=== PATIENT | male | born 1940 | race Caucasian/White ===

== ENCOUNTER 2017-02-22 06:09 | Inpatient (IN) | payer MEDICARE, OTHER ==
[2017-02-13 08:37] VITALS: BP 96/59
[~2017-02-22] VITALS: Ht 182.9 cm; Wt 116.0 kg
[~2017-02-22 06:09] MED LIST: ALLO100T30 PO; ARED 2 PO; ASPI-496 PO; ATOR20TA PO; AZIT250T89 PO; BENA20TA2 PO; CHOL20002 PO; CYAN50008 PO; GABA100C PO; GABA300C PO; HYDR12.58 PO; IBUP400T PO; IBUP800T PO; MAGNESIUM PO; METF500T4 PO; MULT-26 PO; MULT-717 PO; PRED10TA PO; TRAM50TA2 PO
[2017-02-22] MEDS ORDERED: KETOROLAC 60 MG/2 ML ONE ×2 (06:17→07:50)
[2017-02-22] MEDS ORDERED: TRANEXAMIC ACID 100 MG/ML, 10ML ONE ×2 (06:17→07:50)
[2017-02-22] MEDS ORDERED: ROPIvacaine/PF 0.5%, 20 ML ONE (06:17)
[2017-02-22] MEDS ORDERED: SODIUM CHLORIDE 0.9% 50 ML ONE (06:18)
[2017-02-22] MEDS ORDERED: EPINEPHRINE 1 MG/ML, 1ML ONE (06:18)
[2017-02-22] MEDS ORDERED: MIDAZOLAM 1 MG/ML, 2ML ONE (06:36)
[2017-02-22] MEDS ORDERED: FENTANYL PF 250 MCG/5ML ONE (06:36)
[2017-02-22] MEDS ORDERED: LACTATED RINGERS 1,000 ML IV SCH (06:53)
[2017-02-22] MEDS ORDERED: LIDOCAINE 1%, 2ML SQ PRN (07:00)
[2017-02-22] MEDS ORDERED: DEXAMETHASONE 4 MG/ML, 1ML ONE (07:10)
[2017-02-22] MEDS ORDERED: CEFAZOLIN 1,000 MG ONE (07:10)
[2017-02-22] MEDS ORDERED: ONDANSETRON 2MG/ML, 2ML ONE (07:10)
[2017-02-22] MEDS ORDERED: PROPOFOL 10 MG/ML, 20ML ONE (07:10)
[2017-02-22] MEDS ORDERED: HYDROmorphone 1 MG/ML, 1ML IV PRN ×2 (08:00→09:00)
[2017-02-22] MEDS ORDERED: ONDANSETRON 2MG/ML, 2ML IVPush PRN (08:00)
[2017-02-22] MEDS ORDERED: LABETALOL 5MG/ML, 20ML IV PRN (08:00)
[2017-02-22] MEDS ORDERED: OXYcodone 5 MG/5 ML ORAL.SOL UDC PO PRN (08:00)
[2017-02-22] MEDS ORDERED: ACETAMINOPHEN 325 MG TABLET PO PRN (08:00)
[2017-02-22] MEDS ORDERED: METOCLOPRAMIDE 5 MG/ML, 2ML IV PRN (08:00)
[2017-02-22] MEDS ORDERED: hydrALAzine 20 MG/ML, 1ML IV PRN (08:00)
[2017-02-22] MEDS ORDERED: FENTANYL PF 100 MCG/2ML IV PRN (08:00)
[2017-02-22] MEDS ORDERED: ONDANSETRON 4 MG TABLET PO PRN (09:00)
[2017-02-22] MEDS ORDERED: SCOPOLAMINE PATCH, 1.5MG PATCH.TD72 TD SCH (09:00)
[2017-02-22] MEDS ORDERED: HYDROcodone/APAP 10/325 MG TABLET PO PRN (09:00)
[2017-02-22] MEDS ORDERED: SENNA/DOCUSATE TABLET PO PRN (09:00)
[2017-02-22] MEDS ORDERED: OXYcodone IR 5MG TABLET PO PRN (09:00)
[2017-02-22] MEDS ORDERED: BISACODYL 10 MG SUPP PR PRN (09:00)
[2017-02-22] MEDS: ACETAMINOPHEN 650 MG/20.3 ML UDC PO SCH ×4 (09:00→21:00)
[2017-02-22] MEDS ORDERED: ONDANSETRON 2MG/ML, 2ML IV PRN (09:00)
[2017-02-22] MEDS ORDERED: DIPHENHYDRAMINE 50 MG CAPSULE PO PRN (09:00)
[2017-02-22] MEDS ORDERED: PROMETHAZINE 25 MG/ML, 1ML IM PRN (09:00)
[2017-02-22] MEDS ORDERED: PROMETHAZINE 12.5 MG SUPP PR PRN (09:00)
[2017-02-22] MEDS ORDERED: MAGNESIUM HYDROXIDE 8%, 30ML UDC PO PRN (09:00)
[2017-02-22] MEDS ORDERED: DIAZEPAM 5 MG TABLET PO PRN (09:00)
[2017-02-22] MEDS ORDERED: ALUMINUM/MAG/SIMETHICONE 30 ML UDC PO PRN (09:00)
[2017-02-22] MEDS ORDERED: ZOLPIDEM 5MG TABLET PO PRN (09:00)
[2017-02-22] MEDS: MULTIVITAMINS/MINERALS TABLET PO SCH (09:00)
[2017-02-22] MEDS: OXYcodone IR 5MG TABLET PO SCH ×4 (09:00→21:00)
[2017-02-22] MEDS ORDERED: TRANEXAMIC ACID 1,000 MG in SODIUM CHLORIDE 0.9% 100 ML IVPB ONE (09:20)
[2017-02-22] MEDS: D5%-0.45% NACL 1,000 ML IV SCH ×3 (11:49→20:58)
[2017-02-22] MEDS: PREGABALIN 75 MG CAPSULE PO SCH ×2 (11:50→20:58)
[2017-02-22] MEDS: DOCUSATE 100 MG CAPSULE PO SCH ×2 (11:50→20:57)
[2017-02-22] MEDS: TAMSULOSIN 0.4 MG CAP.ER.24H PO SCH (11:51)
[2017-02-22] MEDS: BENAZEPRIL 20 MG TABLET PO SCH (12:38)
[2017-02-22 14:00] VITALS: BP 127/75
[2017-02-22] MEDS: CEFAZOLIN PMX 2GM/50ML 50 ML IVPB SCH (15:37)
[2017-02-22] MEDS: ASPIRIN 81 MG TABLET EC PO SCH (17:54)
[2017-02-22 19:19] VITALS: BP 114/69
[2017-02-22] MEDS: ATORVASTATIN 20 MG TABLET PO SCH (20:57)
[2017-02-22 23:24] VITALS: BP 94/60
[2017-02-23] MEDS: CEFAZOLIN PMX 2GM/50ML 50 ML IVPB SCH
[2017-02-23] MEDS: OXYcodone IR 5MG TABLET PO SCH ×8 (01:00→21:59)
[2017-02-23] MEDS: ACETAMINOPHEN 650 MG/20.3 ML UDC PO SCH ×6 (01:00→21:56)
[2017-02-23 03:37] VITALS: BP 112/63
[2017-02-23] MEDS ORDERED: DEXAMETHASONE 4 MG/ML, 1ML IVPush SCH (06:00)
[2017-02-23] MEDS: ASPIRIN 81 MG TABLET EC PO SCH ×2 (06:18→17:30)
[2017-02-23 08:00] VITALS: BP 116/65
[2017-02-23 08:26] LABS: ASPARTATE AMINO TRANSFERASE 48 U/L (15-37); BLOOD UREA NITROGEN 34 mg/dL (7-18)
[2017-02-23] MEDS: D5%-0.45% NACL 1,000 ML IV SCH ×2 (08:52→21:52)
[2017-02-23] MEDS: HYDROCHLOROTHIAZIDE 12.5 MG CAPSULE PO SCH (09:50)
[2017-02-23] MEDS: MULTIVITAMINS/MINERALS TABLET PO SCH (09:51)
[2017-02-23] MEDS: TAMSULOSIN 0.4 MG CAP.ER.24H PO SCH (09:51)
[2017-02-23] MEDS: KETOROLAC 30 MG/1 ML IV SCH ×3 (09:51→21:58)
[2017-02-23] MEDS: ALLOPURINOL 300 MG TABLET PO SCH (09:51)
[2017-02-23] MEDS: DOCUSATE 100 MG CAPSULE PO SCH ×2 (09:51→21:56)
[2017-02-23] MEDS: BENAZEPRIL 20 MG TABLET PO SCH (09:51)
[2017-02-23] MEDS ORDERED: SODIUM CHLORIDE 0.9% 1,000ML IVBOLUS ONE ×2 (10:00→15:30)
[2017-02-23 15:50] VITALS: BP 138/72
[2017-02-23 19:33] VITALS: BP 136/51
[2017-02-23] MEDS: ATORVASTATIN 20 MG TABLET PO SCH (21:56)
[2017-02-24] MEDS: ACETAMINOPHEN 650 MG/20.3 ML UDC PO SCH ×5 (00:27→20:47)
[2017-02-24] MEDS ORDERED: HALOPERIDOL 5 MG/ML ONE (02:09)
[2017-02-24] MEDS ORDERED: HALOPERIDOL 5 MG/ML IM PRN ×2 (02:30→11:00)
[2017-02-24 02:42] VITALS: BP 122/65
[2017-02-24] MEDS: ASPIRIN 81 MG TABLET EC PO SCH ×2 (04:42→17:23)
[2017-02-24 06:46] VITALS: BP 144/73
[2017-02-24] MEDS: D5%-0.45% NACL 1,000 ML IV SCH ×2 (08:52→16:52)
[2017-02-24] MEDS: HYDROCHLOROTHIAZIDE 12.5 MG CAPSULE PO SCH (09:34)
[2017-02-24] MEDS: ALLOPURINOL 300 MG TABLET PO SCH (09:34)
[2017-02-24] MEDS: DOCUSATE 100 MG CAPSULE PO SCH ×2 (09:34→20:48)
[2017-02-24] MEDS: MULTIVITAMINS/MINERALS TABLET PO SCH (09:34)
[2017-02-24] MEDS: BENAZEPRIL 20 MG TABLET PO SCH (09:34)
[2017-02-24] MEDS: TAMSULOSIN 0.4 MG CAP.ER.24H PO SCH (09:35)
[2017-02-24] MEDS: OXYcodone IR 5MG TABLET PO SCH ×4 (09:35→21:00)
[2017-02-24] MEDS: KETOROLAC 30 MG/1 ML IV SCH ×2 (09:35→16:21)
[2017-02-24 11:50] LABS: ASPARTATE AMINO TRANSFERASE 44 U/L (15-37); BLOOD UREA NITROGEN 30 mg/dL (7-18)
[2017-02-24 12:00] LABS: ANISOCYTOSIS 1+
[2017-02-24 12:36] VITALS: BP 95/46
[2017-02-24 19:51] VITALS: BP 101/55
[2017-02-24] MEDS: ATORVASTATIN 20 MG TABLET PO SCH (20:47)
[2017-02-25] MEDS: D5%-0.45% NACL 1,000 ML IV SCH ×3 (00:22→16:52)
[2017-02-25] MEDS: ACETAMINOPHEN 650 MG/20.3 ML UDC PO SCH ×6 (00:24→22:48)
[2017-02-25] MEDS: OXYcodone IR 5MG TABLET PO SCH ×6 (00:24→19:59)
[2017-02-25 01:07] VITALS: BP 111/60
[2017-02-25] MEDS: ASPIRIN 81 MG TABLET EC PO SCH ×2 (05:01→17:51)
[2017-02-25 07:14] VITALS: BP 110/66
[2017-02-25] MEDS: MULTIVITAMINS/MINERALS TABLET PO SCH (09:13)
[2017-02-25] MEDS: ALLOPURINOL 300 MG TABLET PO SCH (09:14)
[2017-02-25] MEDS: HYDROCHLOROTHIAZIDE 12.5 MG CAPSULE PO SCH (09:14)
[2017-02-25] MEDS: DOCUSATE 100 MG CAPSULE PO SCH ×2 (09:14→19:59)
[2017-02-25] MEDS: BENAZEPRIL 20 MG TABLET PO SCH (09:14)
[2017-02-25] MEDS: TAMSULOSIN 0.4 MG CAP.ER.24H PO SCH (09:14)
[2017-02-25 14:40] VITALS: BP 114/66
[2017-02-25] MEDS: ATORVASTATIN 20 MG TABLET PO SCH (19:58)
[2017-02-25 20:09] VITALS: BP 138/74
[2017-02-26] MEDS: D5%-0.45% NACL 1,000 ML IV SCH ×3 (00:52→16:47)
[2017-02-26] MEDS: OXYcodone IR 5MG TABLET PO SCH ×6 (01:00→20:22)
[2017-02-26 01:25] VITALS: BP 123/62
[2017-02-26] MEDS: ACETAMINOPHEN 650 MG/20.3 ML UDC PO SCH ×6 (02:54→20:36)
[2017-02-26 05:46] LABS: BLOOD UREA NITROGEN 31 mg/dL (7-18)
[2017-02-26 05:52] LABS: ASPARTATE AMINO TRANSFERASE 53 U/L (15-37)
[2017-02-26] MEDS: ASPIRIN 81 MG TABLET EC PO SCH ×2 (06:04→20:36)
[2017-02-26 08:15] VITALS: BP 106/64
[2017-02-26] MEDS: TAMSULOSIN 0.4 MG CAP.ER.24H PO SCH ×2 (09:00→20:36)
[2017-02-26] MEDS: DOCUSATE 100 MG CAPSULE PO SCH ×2 (09:00→20:22)
[2017-02-26] MEDS: HYDROCHLOROTHIAZIDE 12.5 MG CAPSULE PO SCH (09:20)
[2017-02-26] MEDS: MULTIVITAMINS/MINERALS TABLET PO SCH (09:20)
[2017-02-26] MEDS: BENAZEPRIL 20 MG TABLET PO SCH (09:20)
[2017-02-26] MEDS: ALLOPURINOL 300 MG TABLET PO SCH (09:20)
[2017-02-26 15:30] VITALS: BP 120/71
[2017-02-26 20:03] VITALS: BP 121/57
[2017-02-26] MEDS: ATORVASTATIN 20 MG TABLET PO SCH (20:36)
[2017-02-27] MEDS: ACETAMINOPHEN 650 MG/20.3 ML UDC PO SCH ×8 (00:25→23:00)
[2017-02-27] MEDS: D5%-0.45% NACL 1,000 ML IV SCH ×3 (00:34→16:52)
[2017-02-27] MEDS: OXYcodone IR 5MG TABLET PO SCH ×6 (00:40→21:00)
[2017-02-27 01:10] VITALS: BP 120/54
[2017-02-27] MEDS: ASPIRIN 81 MG TABLET EC PO SCH ×2 (06:25→17:21)
[2017-02-27 07:51] VITALS: BP 147/74
[2017-02-27] MEDS: MULTIVITAMINS/MINERALS TABLET PO SCH (09:00)
[2017-02-27] MEDS: HYDROCHLOROTHIAZIDE 12.5 MG CAPSULE PO SCH ×2 (09:00→09:08)
[2017-02-27] MEDS: ALLOPURINOL 300 MG TABLET PO SCH ×2 (09:00→09:08)
[2017-02-27] MEDS: DOCUSATE 100 MG CAPSULE PO SCH ×2 (09:00→21:00)
[2017-02-27] MEDS: BENAZEPRIL 20 MG TABLET PO SCH (09:08)
[2017-02-27 14:10] VITALS: BP 135/73
[2017-02-27 20:11] VITALS: BP 121/70
[2017-02-27] MEDS: ATORVASTATIN 20 MG TABLET PO SCH (20:27)
[2017-02-28] MEDS: D5%-0.45% NACL 1,000 ML IV SCH ×3 (00:52→16:52)
[2017-02-28] MEDS: OXYcodone IR 5MG TABLET PO SCH ×6 (01:00→21:00)
[2017-02-28 02:31] VITALS: BP 121/68
[2017-02-28] MEDS: ACETAMINOPHEN 650 MG/20.3 ML UDC PO SCH ×5 (02:47→22:04)
[2017-02-28] MEDS: ASPIRIN 81 MG TABLET EC PO SCH ×2 (06:58→17:49)
[2017-02-28] MEDS: DOCUSATE 100 MG CAPSULE PO SCH ×2 (08:56→22:04)
[2017-02-28] MEDS: TAMSULOSIN 0.4 MG CAP.ER.24H PO SCH (08:56)
[2017-02-28] MEDS: MULTIVITAMINS/MINERALS TABLET PO SCH (08:57)
[2017-02-28] MEDS: HYDROCHLOROTHIAZIDE 12.5 MG CAPSULE PO SCH (08:57)
[2017-02-28] MEDS: BENAZEPRIL 20 MG TABLET PO SCH (08:58)
[2017-02-28] MEDS: ALLOPURINOL 300 MG TABLET PO SCH (08:58)
[2017-02-28 09:06] VITALS: BP 106/65
[2017-02-28 09:16] LABS: ASPARTATE AMINO TRANSFERASE 50 U/L (15-37); BLOOD UREA NITROGEN 35 mg/dL (7-18)
[2017-02-28 15:14] VITALS: BP 135/71
[2017-02-28 20:12] VITALS: BP 95/66
[2017-02-28] MEDS: ATORVASTATIN 20 MG TABLET PO SCH (22:04)
[2017-03-01] MEDS: D5%-0.45% NACL 1,000 ML IV SCH ×2 (00:52→08:37)
[2017-03-01] MEDS: OXYcodone IR 5MG TABLET PO SCH ×4 (01:00→08:45)
[2017-03-01] MEDS: ACETAMINOPHEN 650 MG/20.3 ML UDC PO SCH ×4 (02:35→14:24)
[2017-03-01 03:20] VITALS: BP 120/71
[2017-03-01 06:18] LABS: ASPARTATE AMINO TRANSFERASE 38 U/L (15-37); BLOOD UREA NITROGEN 37 mg/dL (7-18)
[2017-03-01] MEDS: ASPIRIN 81 MG TABLET EC PO SCH (06:31)
[2017-03-01 07:15] VITALS: BP 97/60
[2017-03-01] MEDS: DOCUSATE 100 MG CAPSULE PO SCH (08:39)
[2017-03-01] MEDS: BENAZEPRIL 20 MG TABLET PO SCH ×2 (08:44→12:05)
[2017-03-01] MEDS: HYDROCHLOROTHIAZIDE 12.5 MG CAPSULE PO SCH (08:44)
[2017-03-01] MEDS: ALLOPURINOL 300 MG TABLET PO SCH (08:44)
[2017-03-01] MEDS: MULTIVITAMINS/MINERALS TABLET PO SCH (08:44)
[2017-03-01] MEDS: TAMSULOSIN 0.4 MG CAP.ER.24H PO SCH (08:44)
[2017-03-01 12:07] VITALS: BP 106/66
[2017-03-01] MEDS ORDERED: ASPI-515 PO (13:40)
[2017-03-01] MEDS ORDERED: OXYC5CAP4 PO (13:44)
[2017-03-01 16:30] VITALS: BP 122/60
== END 2017-03-01 16:57 | DRG 470 ==
LOC: ORIP 06:09 → 4NOR 10:18
PROVIDERS: ADMIT Orthopaedic Surgery; ATTEND Orthopaedic Surgery
PROC: 0SR902A Replacement of Right Hip Joint with Metal on Polyethylene Synthetic Substitute, Uncemented, Open Approach (ICD-10-PCS; principal; 2017-02-22 07:30)
DX: M16.11 Unilateral primary osteoarthritis, right hip (principal); K50.90 Crohn's disease, unspecified, without complications; F05 Delirium due to known physiological condition; D53.9 Nutritional anemia, unspecified; E78.5 Hyperlipidemia, unspecified; G47.33 Obstructive sleep apnea (adult) (pediatric); K80.20 Calculus of gallbladder without cholecystitis without obstruction; M10.9 Gout, unspecified; Z80.0 Family history of malignant neoplasm of digestive organs; Z96.642 Presence of left artificial hip joint; Z82.49 Family history of ischemic heart disease and other diseases of the circulatory system; Z82.5 Family history of asthma and other chronic lower respiratory diseases
CPT/HCPCS: 36415; 70450; 71010; 74181; 76700; 80053; 80076; 81003; 82140; 82247; 82248; 82607; 82746; 82977; 84439; 84443; 84550; 85014; 85018; 85025; 85610; 86704; 86706; 86708; 86803; 86850; 86900; 87324; 87340; 93005; 93970; C1713; J0171; J0690; J1100; J1885; J2250; J2405; J2704; J2795; J3010; C1776; J1630; J7030

== ENCOUNTER 2017-03-03 19:07 | Inpatient (IN) | payer MEDICARE, OTHER ==
[~2017-03-03] VITALS: Ht 185.4 cm; Wt 113.4 kg
[~2017-03-03 19:07] MED LIST changes: +ASPI-515 PO; +OXYC5CAP4 PO
[2017-03-03] MEDS ORDERED: SODIUM CHLORIDE FLUSH 10ML SYR IVF ONE (20:00)
[2017-03-03 20:42] LABS: ABG COLLECTION SITE RIGHT RADIAL; COLLATERAL CIRCULATION TESTING NORMAL
[2017-03-03 20:47] LABS: ASPARTATE AMINO TRANSFERASE 28 U/L (15-37); BLOOD UREA NITROGEN 50 mg/dL (7-18)
[2017-03-03 20:56] LABS: IS PT STATUS REG ER OR PRE ER? YES
[2017-03-03] MEDS ORDERED: SODIUM CHLORIDE FLUSH 10ML SYR IVF PRN (21:30)
[2017-03-03] MEDS ORDERED: PLEASE ENTER ALLERGIES MC SCH ×2 (22:00)
[2017-03-03] MEDS ORDERED: SODIUM CHLORIDE 0.9% 1,000 ML IV SCH (22:58)
[2017-03-03 23:00] VITALS: BP 100/58
[2017-03-03] MEDS ORDERED: DOCUSATE 100 MG CAPSULE PO PRN (23:00)
[2017-03-03] MEDS ORDERED: POLYETHYLENE GLYCOL 17 GM PACKET PO PRN (23:00)
[2017-03-03] MEDS ORDERED: morphine SULFATE 10 MG/ML, 1ML IVPush PRN (23:00)
[2017-03-03] MEDS ORDERED: ONDANSETRON 2MG/ML, 2ML IVPush PRN (23:00)
[2017-03-03] MEDS: ACETAMINOPHEN 325 MG TABLET PO PRN (23:49)
[2017-03-03] MEDS: ENOXAPARIN 40 MG/0.4 ML SQ SCH (23:49)
[2017-03-04 02:00] VITALS: BP 120/67
[2017-03-04] MEDS: ACETAMINOPHEN 325 MG TABLET PO PRN ×3 (03:26→23:24)
[2017-03-04 06:05] LABS: ASPARTATE AMINO TRANSFERASE 27 U/L (15-37); BLOOD UREA NITROGEN 46 mg/dL (7-18)
[2017-03-04] MEDS: SENNA/DOCUSATE TABLET PO SCH ×2 (08:11→08:16)
[2017-03-04 08:12] VITALS: BP 123/63
[2017-03-04] MEDS: SODIUM CHLORIDE 0.9% 1,000 ML IV SCH ×2 (12:30→23:24)
[2017-03-04] MEDS ORDERED: SODIUM CHLORIDE 0.9% 1,000 ML IV SCH (12:30)
[2017-03-04 13:44] VITALS: BP 95/57
[2017-03-04 18:51] VITALS: BP 140/67
[2017-03-04] MEDS: ENOXAPARIN 40 MG/0.4 ML SQ SCH (23:24)
[2017-03-05 00:39] VITALS: BP 146/73
[2017-03-05] MEDS: ACETAMINOPHEN 325 MG TABLET PO PRN ×2 (04:16→08:58)
[2017-03-05 05:44] LABS: BLOOD UREA NITROGEN 35 mg/dL (7-18)
[2017-03-05] MEDS: SENNA/DOCUSATE TABLET PO SCH (07:19)
[2017-03-05 07:24] VITALS: BP 150/60
[2017-03-05] MEDS: SODIUM CHLORIDE 0.9% 1,000 ML IV SCH (08:21)
[2017-03-05 13:18] VITALS: BP 110/61
[2017-03-05] MEDS ORDERED: ENOX40SY4 SQ (14:27)
== END 2017-03-05 15:35 | DRG 70 ==
LOC: ED 21:40 → EDIP 22:11 → 4EST 22:41
PROVIDERS: ADMIT Family Medicine; ATTEND Family Medicine
DX: G93.41 Metabolic encephalopathy (principal); N17.0 Acute kidney failure with tubular necrosis; E43 Unspecified severe protein-calorie malnutrition; R17 Unspecified jaundice; D50.0 Iron deficiency anemia secondary to blood loss (chronic); E78.5 Hyperlipidemia, unspecified; E86.0 Dehydration; I12.9 Hypertensive chronic kidney disease with stage 1 through stage 4 chronic kidney disease, or unspecified chronic kidney disease; M10.9 Gout, unspecified; M19.90 Unspecified osteoarthritis, unspecified site; N18.9 Chronic kidney disease, unspecified; Z96.641 Presence of right artificial hip joint; Z87.891 Personal history of nicotine dependence; Z68.33 Body mass index [BMI] 33.0-33.9, adult; Z88.1 Allergy status to other antibiotic agents; Z88.5 Allergy status to narcotic agent; Z87.01 Personal history of pneumonia (recurrent); Z79.82 Long term (current) use of aspirin; Z79.899 Other long term (current) drug therapy
CPT/HCPCS: 36415; 36600; 70450; 71010; 80048; 80053; 81003; 82040; 82803; 83605; 83735; 83880; 84443; 84484; 85025; 87040; 93005; 99285; J1650; J7030

== ENCOUNTER → 2017-04-13 | Outpatient (CLI) | payer MEDICARE, OTHER ==
[~2017-04-13] MED LIST changes: +ENOX40SY4 SQ
== END | disposition home or self-care (01) ==
LOC: CFH 11:28
PROVIDERS: ATTEND Nurse Practitioner Primary Care
DX: E04.2 Nontoxic multinodular goiter (principal); E78.2 Mixed hyperlipidemia; I10 Essential (primary) hypertension; G89.29 Other chronic pain; D64.9 Anemia, unspecified
CPT/HCPCS: 76536

== ENCOUNTER → 2017-09-29 | Outpatient (CLI) | payer MEDICARE, OTHER ==
[~2017-09-29] MED LIST changes: +ACET-76 PO; +ATOR10TA9 PO; +CYAN25009 PO; +IBUP-1221 PO; +IBUP-1223 PO; -IBUP400T PO; -IBUP800T PO; +KRIL1CAP31 PO; +OXYC5CAP2 PO; -OXYC5CAP4 PO; +TAMS0.4C2 PO; +UBID100C41 PO
[2017-09-29 09:59] LABS: MICROSCOPIC INDICATED
== END | disposition home or self-care (01) ==
LOC: STAR 08:49
PROVIDERS: ATTEND Urology
DX: Z01.818 Encounter for other preprocedural examination (principal); I44.7 Left bundle-branch block, unspecified; N47.5 Adhesions of prepuce and glans penis
CPT/HCPCS: 81001; 87086; 93005

== ENCOUNTER 2017-10-13 05:34 | Day surgery (SDC) | payer MEDICARE, OTHER ==
[~2017-10-13] VITALS: Ht 185.4 cm; Wt 103.0 kg
[2017-10-13] MEDS ORDERED: LACTATED RINGERS 1,000 ML IV SCH (06:16)
[2017-10-13 06:41] VITALS: BP 156/84
[2017-10-13] MEDS ORDERED: BUPIVACAINE/PF 0.25% ONE (07:00)
[2017-10-13] MEDS ORDERED: LIDOCAINE 1%, 20ML ONE (07:00)
[2017-10-13] MEDS ORDERED: OXYcodone 5 MG/5 ML ORAL.SOL UDC PO PRN (07:30)
[2017-10-13] MEDS ORDERED: ONDANSETRON 2MG/ML, 2ML IVPush PRN (07:30)
[2017-10-13] MEDS ORDERED: HYDROcodone/APAP 7.5-325MG/15ML UDC PO PRN (07:30)
[2017-10-13] MEDS ORDERED: PROPOFOL 10 MG/ML, 20ML ONE (07:52)
[2017-10-13] MEDS ORDERED: CEFAZOLIN 1,000 MG ONE ×2 (07:52)
[2017-10-13] MEDS ORDERED: LIDOCAINE-MPF 2% ,5ML ONE (07:52)
[2017-10-13] MEDS ORDERED: BACITRACIN OINT 500U/GM, 15 GM ONE (08:58)
== END 2017-10-13 10:30 ==
LOC: OR 05:34
PROVIDERS: ATTEND Urology
DX: N47.1 Phimosis (principal); Z88.1 Allergy status to other antibiotic agents; Z88.8 Allergy status to other drugs, medicaments and biological substances
CPT/HCPCS: 54450; J0690; J2704; J3490; J7120

== ENCOUNTER → 2018-04-23 | Outpatient (CLI) | payer MEDICARE, OTHER ==
[~2018-04-23] MED LIST changes: -BENA20TA2 PO; +BENA20TA4 PO; -CHOL20002 PO; +CHOL200052 PO; +METF500T17 PO; -METF500T4 PO
== END | disposition home or self-care (01) ==
LOC: CFH 15:02
PROVIDERS: ATTEND Nurse Practitioner Primary Care
DX: R41.3 Other amnesia (principal); I10 Essential (primary) hypertension; I49.9 Cardiac arrhythmia, unspecified; G31.89 Other specified degenerative diseases of nervous system; E78.2 Mixed hyperlipidemia; E55.9 Vitamin D deficiency, unspecified; R01.1 Cardiac murmur, unspecified; N40.0 Benign prostatic hyperplasia without lower urinary tract symptoms; G89.29 Other chronic pain; M10.9 Gout, unspecified; M19.90 Unspecified osteoarthritis, unspecified site; R09.89 Other specified symptoms and signs involving the circulatory and respiratory systems; Z79.899 Other long term (current) drug therapy
CPT/HCPCS: 70450; 93880

== ENCOUNTER 2020-05-13 13:18 | Outpatient (CLI) | payer MEDICARE, OTHER ==
[~2020-05-13 13:18] MED LIST changes: -BENA20TA4 PO; +BENA20TA54 PO; -HYDR12.58 PO; +HYDROCHLOROTH12.5 MG PO
[2020-05-13] MEDS ORDERED: OMNIPAQUE 350 MG/ML, 100ML BOTTLE ONE (14:45)
== END 2020-05-13 23:59 | disposition home or self-care (01) ==
LOC: RAD 13:18
PROVIDERS: ATTEND Nurse Practitioner Primary Care
DX: N28.1 Cyst of kidney, acquired (principal); J84.10 Pulmonary fibrosis, unspecified; M41.86 Other forms of scoliosis, lumbar region; M51.36 Other intervertebral disc degeneration, lumbar region; E78.2 Mixed hyperlipidemia; I10 Essential (primary) hypertension
CPT/HCPCS: 74177; Q9967

== ENCOUNTER → 2020-06-24 | Outpatient (CLI) | payer MEDICARE, OTHER | END | disposition home or self-care (01) | LOC: CFH 07:49 | PROVIDERS: ATTEND Nurse Practitioner Primary Care | DX: N28.1 Cyst of kidney, acquired (principal); R93.5 Abnormal findings on diagnostic imaging of other abdominal regions, including retroperitoneum; R79.9 Abnormal finding of blood chemistry, unspecified; R10.9 Unspecified abdominal pain; E78.2 Mixed hyperlipidemia; I10 Essential (primary) hypertension; E55.9 Vitamin D deficiency, unspecified; Z79.899 Other long term (current) drug therapy | CPT/HCPCS: 76700 ==